=== PATIENT | female | born 1960 | race Caucasian/White ===

== ENCOUNTER 2016-10-26 11:56 | Emergency (ER) | payer BC ==
[2016-10-26] MEDS ORDERED: PROMETHAZINE HCL INJ 25 MG/1 ML VIAL IV ONE (13:03)
[2016-10-26] MEDS ORDERED: OXYCODONE-ACETAMINOPHEN 5-325 MG TABLET PO ONE (13:03)
[2016-10-26] MEDS ORDERED: ONDANSETRON HCL INJ/PF 4 MG/2 ML SDV IV ONE ×2 (13:05→15:39)
[2016-10-26] MEDS ORDERED: MORPHINE SULFATE 10 MG/ML INJ IV ONE ×3 (13:05→17:22)
[2016-10-26 13:45] LABS: APPEARANCE,URINE SLIGHTLY-CLOUDY; BILIRUBIN,URINE NEGATIVE (NEGATIVE); GLUCOSE, URINE NEGATIVE (NEGATIVE); KETONES,URINE NEGATIVE (NEGATIVE); LEUKOCYTE ESTERASE,URINE NEGATIVE (NEGATIVE); NITRITE,URINE NEGATIVE (NEGATIVE); PROTEIN,URINE 30 mg/dL (NEGATIVE); URINE SPECIFIC GRAVITY 1.012; UROBILINOGEN,URINE NEGATIVE mg/dL (<2.0)
--- NOTE | 2016-10-26 13:50 | RADIOLOGY REPORT (SQ) ---
EXAM DESCRIPTION: CT ABD/PELVIS NO ORAL OR IV COMPLETED DATE/TIME: 10/26/2016 1:30 pm REASON FOR STUDY: rlq pain COMPARISON: None. TECHNIQUE: CT scan of the abdomen and pelvis performed without intravenous or oral contrast. Images reviewed with lung, soft tissue, and bone windows. Reconstructed coronal and sagittal MPR images revi ewed. All images stored on PACS. All CT scanners at this facility use dose modulation, iterative reconstruction, and/or weight based d osing when appropriate to reduce radiation dose to as low as reasonably achievable (ALARA). [facility]: Dose Right [facility]: CareDose [facility]: Dose Right [facility]: Teradose 4D [facility]: Smart [employer] RADIATION DOSE: Up-to-date CT equipment and radiation dose reduction techniques were employed. CTDIv ol: 12.5 mGy. DLP: 688 mGy-cm.mGy. LIMITATIONS: None. FINDINGS: LOWER CHEST: Breast implants. Small hiatal hernia. NON-CONTRASTED LIVER, SPLEEN, ADRENALS: Evaluation limited by lack of IV contrast. No identified sign ificant masses. PANCREAS: No masses. No peripancreatic inflammatory changes. GALLBLADDER: Surgically absent. RIGHT KIDNEY AND URETER: No suspicious masses. Assessment limited by lack of IV contrast. No signif icant calcifications. No hydronephrosis or hydroureter. LEFT KIDNEY AND URETER: No suspicious masses. Assessment limited by lack of IV contrast. No signifi cant calcifications. No hydronephrosis or hydroureter. AORTA AND RETROPERITONEUM: No aneurysm. No retroperitoneal masses or adenopathy. BOWEL AND PERITONEAL CAVITY: No obvious masses or inflammatory changes. No free fluid. APPENDIX: Surgically absent. PELVIS, BLADDER, AND ABDOMINAL WALL:Small ventral hernia containing fat. BONES: No significant findings. OTHER: No other significant finding. IMPRESSION: NO ACUTE PROCESS IN THE ABDOMEN OR PELVIS. COMMENT: Quality ID # [id number]: Final reports with documentation of one or more dose reduction techniques (e.g., Automated exposure control, adjustment of the mA and/or kV according to patient size, use of iterative reconstruction technique) TECHNICAL DOCUMENTATION: JOB ID: [id number] [employer]- All Rights Reserved
--- NOTE | 2016-10-26 15:08 | ER Document Report ---
ED General - General Chief Complaint: Flank Pain Stated Complaint: BACK PAIN Time Seen by Provider: 10/26/16 13:02 Mode of Arrival: Ambulatory Information source: Patient Notes: Patient presents with right low back pain for 2 days. She states it does feel similar to a previous kidney stone. It is a sharp pain that radiates around to the right front abdomen. Some nausea and vomiting. No vaginal discharge or bleeding. No dysuria. She has had hematuria. No problems with bowel movements. Nothing makes the pain better or worse. It is moderate and sharp. It has been constant. TRAVEL OUTSIDE OF THE [place] IN LAST 30 DAYS: No - Related Data Allergies/Adverse Reactions: aspirin [Aspirin] Allergy (Verified 10/26/16 12:55) ciprofloxacin [From Cipro] Allergy (Verified 10/26/16 12:55) ciprofloxacin HCl [From Cipro] Allergy (Verified 10/26/16 12:55) ketorolac tromethamine [From Toradol] Allergy (Verified 10/26/16 12:55) NSAIDS (Non-Steroidal Anti-Inflamma [Nsaids] Allergy (Verified 10/26/16 12:55) Quinolones Allergy (Verified 10/26/16 12:55) Past Medical History - General Information source: Patient - Social History Smoking Status: Never Smoker Frequency of alcohol use: Occasional Drug Abuse: None Family History: Reviewed & Not Pertinent - Past Medical History Cardiac Medical History: Reports: Hx Hypercholesterolemia Renal/ Medical History: Denies: Hx Peritoneal Dialysis Psychiatric Medical History: Reports: Hx Anxiety, Hx Depression Past Surgical History: Reports: Hx Appendectomy, Hx Section, Hx Orthopedic Surgery - RIGHT FOOT, Hx Tonsillectomy - Immunizations Hx Diphtheria, Pertussis, Tetanus Vaccination: Yes Review of Systems - Review of Systems Constitutional: denies: Chills, Fever Cardiovascular: denies: Chest pain, Palpitations Respiratory: denies: Cough, Short of breath -: Yes All other systems reviewed and negative Physical Exam - Vital signs Vitals: Temp Pulse Resp BP Pulse Ox 98.1 F 108 H 20 141/95 H 97 10/26/16 12:16 10/26/16 12:16 10/26/16 12:16 10/26/16 12:16 10/26/16 12:16 Interpretation: Hypertensive - General General appearance: Appears well, Alert - HEENT Head: Normocephalic, Atraumatic Eyes: Normal Pupils: PERRL - Respiratory Respiratory status: No respiratory distress Chest status: Nontender Breath sounds: Normal Chest palpation: Normal - Cardiovascular Rhythm: Regular Heart sounds: Normal auscultation Murmur: No - Abdominal Inspection: Normal Distension: No distension Bowel sounds: Normal Tenderness: Nontender Organomegaly: No organomegaly - Back Back: Normal, Nontender - Extremities General upper extremity: Normal inspection, Nontender, Normal color, Normal ROM , Normal temperature General lower extremity: Normal inspection, Nontender, Normal color, Normal ROM , Normal temperature, Normal weight bearing. No: Marv's sign - Neurological Neuro grossly intact: Yes Cognition: Normal Orientation: AAOx4 [place] Coma Scale Eye Opening: Spontaneous [place] Coma Scale Verbal: Oriented [place] Coma Scale Motor: Obeys Commands [place] Coma Scale Total: 15 Speech: Normal Motor strength normal: LUE, RUE, LLE, RLE Sensory: Normal - Psychological Associated symptoms: Normal affect, Normal mood - Skin Skin Temperature: Warm Skin Moisture: Dry Skin Color: Normal Course - Vital Signs Vital signs: Temp Pulse Resp BP Pulse Ox 98.1 F 108 H 20 141/95 H 97 10/26/16 12:16 10/26/16 12:16 10/26/16 12:16 10/26/16 12:16 10/26/16 12:16 - Laboratory Laboratory results interpreted by me: 10/26/16 12:29 Urine Protein 30 H Urine Blood LARGE H - Diagnostic Test Radiology reviewed: Image reviewed, Reports reviewed - no acute path Discharge - Discharge Clinical Impression: UTI (urinary tract infection) Condition: Stable Disposition: HOME, SELF-CARE Instructions: Urinary Tract Infection ([facility]) Additional Instructions: Please follow-up with your primary care provider as soon as possible Prescriptions: Cefdinir 300 mg PO BID #14 capsule Hydrocodone/Acetaminophen [[place] 5-325 mg Tablet] 2 tab PO Q6 PRN #15 tab PRN Reason: Ondansetron [Zofran Odt 4 mg Tablet] 1 - 2 tab PO Q4H PRN #15 tab.rapdis PRN Reason: For Nausea/Vomiting Forms: Elevated Blood Pressure Referrals: AGUEDA ANDERSON MD [ACTIVE STAFF] - Follow up as needed
[2016-10-26] MEDS ORDERED: NORMAL SALINE 1000 ML 1,000 ML IV PRN (15:39)
[2016-10-26] MEDS ORDERED: CEFTRIAXONE 1 GM/D5W RTU 1 GM/50 ML RTUPB IV ONE (15:40)
[2016-10-26 16:43] LABS: ABSOLUTE BASOPHILS # (AUTO) 0.1 10^3/uL (0.0-0.2); ABSOLUTE EOSINOPHILS # (AUTO) 0.1 10^3/uL (0.0-0.6); ABSOLUTE LYMPHOCYTES (AUTO) 1.8 10^3/uL (0.5-4.7); ABSOLUTE MONOCYTES (AUTO) 0.3 10^3/uL (0.1-1.4); ABSOLUTE NEUT (AUTO) 8.4 10^3/uL (1.7-8.2); BASOPHILS % (AUTO) 0.6 % (0-2); EOSINOPHILS % (AUTO) 0.5 % (0-6); HEMATOCRIT 41.3 % (36.0-47.0); HEMOGLOBIN 14.2 g/dL (12.0-15.5); HGB HCT DIFFERENCE 1.3; LYMPHOCYTES % (AUTO) 17.2 % (13-45); MEAN CORPUSCULAR HGB CONC 34.3 g/dL (32.0-36.0); MEAN CORPUSCULAR VOLUME 93 fl (80-97); MONOCYTES % (AUTO) 2.7 % (3-13); RED BLOOD COUNT 4.43 10^6/uL (3.72-5.28); RED CELL DISTRIBUTION WIDTH 13.8 % (11.5-14.0); WHITE BLOOD COUNT 10.7 10^3/uL (4.0-10.5)
[2016-10-26 16:59] LABS: ALANINE AMINOTRANSFERASE 94 U/L (9-52); ALBUMIN 4.2 g/dL (3.5-5.0); ALKALINE PHOSPHATASE 52 U/L (38-126); ANION GAP 11 (5-19); ASPARTATE AMINO TRANSFERASE 33 U/L (14-36); BILIRUBIN,DIRECT 0.3 mg/dL (0.0-0.4); BILIRUBIN,TOTAL 0.5 mg/dL (0.2-1.3); BLOOD UREA NITROGEN 10 mg/dL (7-20); CALCIUM 9.4 mg/dL (8.4-10.2); CARBON DIOXIDE 28 mmol/L (22-30); CHLORIDE 102 mmol/L (98-107); CREATININE RESULT 0.64 mg/dL (0.52-1.25); GLUCOSE 107 mg/dL (75-110); SODIUM 140.5 mmol/L (137-145); TOTAL PROTEIN 6.5 g/dL (6.3-8.2)
[2016-10-26 18:03] VITALS: BP 141/89
== END 2016-10-26 17:55 | disposition home or self-care (01) ==
LOC: ER 11:56
DX: N39.0 Urinary tract infection, site not specified (principal); R31.9 Hematuria, unspecified; R11.2 Nausea with vomiting, unspecified; Z87.442 Personal history of urinary calculi; Z88.6 Allergy status to analgesic agent; Z88.1 Allergy status to other antibiotic agents; Z88.8 Allergy status to other drugs, medicaments and biological substances
CPT/HCPCS: 96376; 99284; 96375; 96365; 36415; 87040; 85025; 80053; 81001; 74176; J2270; J2405; J7030; J0696

== ENCOUNTER 2016-12-24 22:03 | Emergency (ER) | payer BC ==
[2016-12-24 22:45] LABS: APPEARANCE,URINE CLOUDY; BILIRUBIN,URINE NEGATIVE (NEGATIVE); GLUCOSE, URINE NEGATIVE (NEGATIVE); KETONES,URINE NEGATIVE (NEGATIVE); LEUKOCYTE ESTERASE,URINE NEGATIVE (NEGATIVE); NITRITE,URINE NEGATIVE (NEGATIVE); PROTEIN,URINE 30 mg/dL (NEGATIVE); UROBILINOGEN,URINE NEGATIVE mg/dL (<2.0)
[2016-12-24] MEDS ORDERED: NORMAL SALINE 1000 ML 1,000 ML IV ONE (23:18)
[2016-12-24] MEDS ORDERED: MORPHINE SULFATE 10 MG/ML INJ IV ONE (23:18)
[2016-12-24] MEDS ORDERED: ONDANSETRON HCL INJ/PF 4 MG/2 ML SDV IV ONE (23:18)
[2016-12-24 23:20] LABS: ABSOLUTE BASOPHILS # (AUTO) 0.1 10^3/uL (0.0-0.2); ABSOLUTE EOSINOPHILS # (AUTO) 0.2 10^3/uL (0.0-0.6); ABSOLUTE MONOCYTES (AUTO) 0.4 10^3/uL (0.1-1.4); ABSOLUTE NEUT (AUTO) 6.5 10^3/uL (1.7-8.2); EOSINOPHILS % (AUTO) 1.5 % (0-6); HEMATOCRIT 42.1 % (36.0-47.0); HEMOGLOBIN 14.6 g/dL (12.0-15.5); HGB HCT DIFFERENCE 1.7; LYMPHOCYTES % (AUTO) 29.7 % (13-45); MEAN CORPUSCULAR HEMOGLOBIN 31.2 pg (27.0-33.4); MEAN CORPUSCULAR HGB CONC 34.6 g/dL (32.0-36.0); MEAN CORPUSCULAR VOLUME 90 fl (80-97); MONOCYTES % (AUTO) 3.9 % (3-13); RED BLOOD COUNT 4.67 10^6/uL (3.72-5.28); RED CELL DISTRIBUTION WIDTH 14.6 % (11.5-14.0); SEGMENTED NEUTROPHILS % (AUTO) 63.9 % (42-78); WHITE BLOOD COUNT 10.1 10^3/uL (4.0-10.5)
[2016-12-24 23:35] LABS: ALANINE AMINOTRANSFERASE 36 U/L (9-52); ALBUMIN 4.2 g/dL (3.5-5.0); ALKALINE PHOSPHATASE 63 U/L (38-126); ANION GAP 11 (5-19); ASPARTATE AMINO TRANSFERASE 18 U/L (14-36); BILIRUBIN,DIRECT 0.4 mg/dL (0.0-0.4); BILIRUBIN,TOTAL 0.5 mg/dL (0.2-1.3); BLOOD UREA NITROGEN 11 mg/dL (7-20); CALCIUM 9.6 mg/dL (8.4-10.2); CARBON DIOXIDE 24 mmol/L (22-30); CHLORIDE 106 mmol/L (98-107); CREATININE RESULT 0.73 mg/dL (0.52-1.25); GLUCOSE 110 mg/dL (75-110); LIPASE 24.3 U/L (23-300); POTASSIUM 4.4 mmol/L (3.6-5.0); SODIUM 140.8 mmol/L (137-145); TOTAL PROTEIN 6.7 g/dL (6.3-8.2)
--- NOTE | 2016-12-25 00:16 | RADIOLOGY REPORT (SQ) ---
EXAM DESCRIPTION: CT LTD RENAL STONE PROTOCOL ON COMPLETED DATE/TIME: 12/25/2016 12:00 am REASON FOR STUDY: right flank pain COMPARISON: None. TECHNIQUE: CT scan of the abdomen and pelvis performed without intravenous or oral contrast. Images reviewed with lung, soft tissue, and bone windows. Reconstructed coronal and sagittal MPR images revi ewed. All images stored on PACS. All CT scanners at this facility use dose modulation, iterative reconstruction, and/or weight based d osing when appropriate to reduce radiation dose to as low as reasonably achievable (ALARA). [facility]: Dose Right [facility]: CareDose [facility]: Dose Right [facility]: Teradose 4D [facility]: Smart [employer] RADIATION DOSE: Up-to-date CT equipment and radiation dose reduction techniques were employed. CTDIv ol: 14.5 mGy. DLP: 739 mGy-cm.mGy. LIMITATIONS: None. FINDINGS: LOWER CHEST: No significant findings. No nodules or infiltrates. Mammary prostheses. NON-CONTRASTED LIVER, SPLEEN, ADRENALS: Evaluation limited by lack of IV contrast. No identified sign ificant masses. PANCREAS: No masses. No peripancreatic inflammatory changes. GALLBLADDER: Surgically absent. RIGHT KIDNEY AND URETER: No suspicious masses. Assessment limited by lack of IV contrast. No signif icant calcifications. No hydronephrosis or hydroureter. Likely small parapelvic cyst or extrarenal pelvis. LEFT KIDNEY AND URETER: No suspicious masses. Assessment limited by lack of IV contrast. No signifi cant calcifications. No hydronephrosis or hydroureter. AORTA AND RETROPERITONEUM: No aneurysm. No retroperitoneal masses or adenopathy. Atherosclerosis. BOWEL AND PERITONEAL CAVITY: No obvious masses or inflammatory changes. No free fluid. APPENDIX: Surgically absent. PELVIS, BLADDER, AND ABDOMINAL WALL:No abnormal masses. No free fluid. Bladder normal. BONES: No significant findings. OTHER: No other significant finding. IMPRESSION: No acute findings. COMMENT: Quality ID # [id number]: Final reports with documentation of one or more dose reduction techniques (e.g., Automated exposure control, adjustment of the mA and/or kV according to patient size, use of iterative reconstruction technique) TECHNICAL DOCUMENTATION: JOB ID: [id number]- All Rights Reserved
--- NOTE | 2016-12-25 01:11 | ER Document Report ---
ED General - General Chief Complaint: Flank Pain Stated Complaint: RIGHT FLANK PAIN Time Seen by Provider: 12/24/16 23:07 Notes: Patient is a 56-year-old female presents with complaint of pain in her right flank. She says she has a history of kidney stones says this feels similar. She has had some vomiting. No fevers. She says she has possible previous kidney stones in her past. She has never needed a stent. She has noticed some blood in her urine. She denies any diarrhea. No other complaints at this time. TRAVEL OUTSIDE OF THE [place] IN LAST 30 DAYS: No - Related Data Allergies/Adverse Reactions: aspirin [Aspirin] Allergy (Verified 12/24/16 22:16) ciprofloxacin [From Cipro] Allergy (Verified 12/24/16 22:16) ciprofloxacin HCl [From Cipro] Allergy (Verified 12/24/16 22:16) ketorolac tromethamine [From Toradol] Allergy (Verified 12/24/16 22:16) NSAIDS (Non-Steroidal Anti-Inflamma [Nsaids] Allergy (Verified 12/24/16 22:16) Quinolones Allergy (Verified 12/24/16 22:16) Past Medical History - Social History Smoking Status: Never Smoker Frequency of alcohol use: None Drug Abuse: None Family History: Reviewed & Not Pertinent Patient has suicidal ideation: No Patient has homicidal ideation: No - Past Medical History Cardiac Medical History: Reports: Hx Hypercholesterolemia Renal/ Medical History: Denies: Hx Peritoneal Dialysis Psychiatric Medical History: Reports: Hx Anxiety, Hx Depression Past Surgical History: Reports: Hx Appendectomy, Hx Section, Hx Orthopedic Surgery - RIGHT FOOT, Hx Tonsillectomy - Immunizations Hx Diphtheria, Pertussis, Tetanus Vaccination: Yes Review of Systems - Review of Systems Notes: My Normal Review Basic REVIEW OF SYSTEMS: CONSTITUTIONAL : Denies fever, chills, or sweats. Denies recent illness. Vascular: No chest pain. RESPIRATORY: Denies cough, cold, or chest congestion. Denies shortness of breath, difficulty breathing, or wheezing. GASTROINTESTINAL: Denies abdominal pain. Denies nausea, vomiting, or diarrhea. GENITOURINARY: Hematuria. Some pain with urination. MUSCULOSKELETAL: Denies neck or back pain or joint pain or swelling. SKIN: Denies rash or skin lesions. NEUROLOGICAL: Denies altered mental status or loss of consciousness. Denies headache. Denies weakness or paralysis or loss of use of either side. Denies problems with gait or speech. Denies sensory or motor loss. ALL OTHER SYSTEMS REVIEWED AND NEGATIVE. Physical Exam - Vital signs Vitals: Temp Pulse Resp BP Pulse Ox 98.5 F 126 H 16 185/79 H 98 12/24/16 22:13 12/24/16 22:13 12/24/16 22:13 12/24/16 22:13 12/24/16 22:13 - Notes Notes: General Appearance: Well nourished, alert, cooperative, no acute distress, moderate obvious discomfort. Vitals: reviewed, See vital signs table. Head: no swelling or tenderness to the head Eyes: PERRL, EOMI, Conjuctiva clear Mouth: No decreasd moisture Lungs: No wheezing, No rales, No rhonci, No accessory muscle use, good air exchange bilaterally. Heart: Normal rate, Regular rythm, No murmur, no rub Abdomen: Normal BS, soft, No rigidity, No reproducible abdominal or flank tenderness to palpation, No guarding, no rebound, no abdominal masses, no organomegaly Extremities: strength 5/5 in all extremities, good pulses in all extremities, no swelling or tenderness in the extremities, no edema. Skin: warm, dry, appropriate color, no rash Neuro: speech clear, oriented x 3, normal affect, responds appropriately to questions. Course - Re-evaluation Re-evalutation: 12/25/16 06:11 Initial evaluation patient's exam and history are consistent with that of a kidney stone. Urinalysis showed blood but no signs of infection. Her blood work is non-concerning. I did obtain a CT scan which shows no evidence of kidney stone and no hydronephrosis. Patient first arrived she is tachycardic. Her pain and tachycardia did improve after she received IV pain medication. She then was requesting more of the pain medicine. I did look her up on the prescription database and saw that the patient has received different narcotic prescriptions from 5 different prescribers in the last 4 and a half months. I informed her that based on the fact that she has no stone on scan and the concerning prescription history I do not feel comfortable giving her any further opiate medications. She also has an allergy to all NSAID medications which she says is for anaphylaxis. I informed her that she could take Tylenol. Patient says that she thinks the reason why stone is not showing up is because she thinks she just passed it when she used the bathroom just prior to becoming to the room; ever, she says that she still needs more pain medication. Informed her again that would not be given appropriate pain medication. I informed her that I feel comfortable treating her Tylenol at this point. Encouraged her follow-up closely with a primary care doctor. Encouraged her return to ER if she has any fevers, vomiting is intractable, or she feels unwell. I suspect that it is unlikely that she did pass a stone pass based on the fact that there is no residual hydronephrosis on her CT scan. She did pass a stone it was very small as a stone of moderate-sized should have at least caused some hydronephrosis. Dictation of this chart was performed using voice recognition software; therefore, there may be some unintended grammatical errors. - Vital Signs Vital signs: Temp Pulse Resp BP Pulse Ox 98.9 F 100 16 149/91 H 98 12/25/16 01:46 12/25/16 01:46 12/25/16 01:46 12/25/16 01:46 12/25/16 01:46 - Laboratory Result Diagrams: 12/24/16 23:10 12/24/16 23:10 Laboratory results interpreted by me: 12/24/16 12/24/16 22:17 23:10 RDW 14.6 H Urine Protein 30 H Urine Blood LARGE H Discharge - Discharge Clinical Impression: Flank pain, acute Hematuria Qualifiers: Hematuria type: unspecified type Qualified Code(s): R31.9 - Hematuria, unspecified Condition: Good Disposition: HOME, SELF-CARE Additional Instructions: Your CT scan today shows no evidence of a kidney stone. Please follow up with your doctor on Tuesday to have them recheck your urine to make sure the blood is clearing and that there is no signs of a developing infection that was not seen on todays urinalysis. I will send your urine for culture to see if it grows out any bacteria. If your urine culture is positive we will call you. Please return to the ER if you have fevers, change in location of your pain, intractable vomiting, or feel unwell. Prescriptions: Ondansetron [Zofran Odt 4 mg Tablet] 1 tab PO Q4H PRN #15 tab.rapdis PRN Reason: For Nausea/Vomiting Referrals: LINDSEY TATUM, [employer] [Primary Care Provider] - 12/27/16
[2016-12-25] MEDS ORDERED: ACETAMINOPHEN 325 MG TABLET PO ONE (01:12)
[2016-12-25 01:47] VITALS: BP 149/91
== END 2016-12-25 01:46 | disposition home or self-care (01) ==
LOC: ER 22:03
DX: R31.9 Hematuria, unspecified (principal); R10.9 Unspecified abdominal pain; R11.10 Vomiting, unspecified
CPT/HCPCS: 99284; 96361; 96374; 96375; 36415; 87086; 83690; 85025; 80053; 81001; 76380; J2270; J2405; J7030

== ENCOUNTER 2017-01-22 15:42 | Emergency (ER) | payer BC ==
[2017-01-22] MEDS ORDERED: HYDROCODONE/ACETAMINOPHEN 5-325 MG TABLET PO ONE ×2 (16:21→19:30)
[2017-01-22] MEDS ORDERED: NORMAL SALINE 1000 ML 1,000 ML IV ONE (16:21)
[2017-01-22] MEDS ORDERED: ONDANSETRON HCL INJ/PF 4 MG/2 ML SDV IV ONE (16:21)
--- NOTE | 2017-01-22 16:24 | ER Document Report ---
ED Medical Screen (RME) - General Chief Complaint: Abdominal Pain Stated Complaint: LOWER ABDOMINAL PAIN, RIGHT WRIST AND KNEE PAIN Time Seen by Provider: 01/22/17 16:20 Mode of Arrival: Ambulatory Information source: Patient TRAVEL OUTSIDE OF THE [place] IN LAST 30 DAYS: No - HPI Patient complains to provider of: abd pain; wrist and knee pain from cat bites Onset: This morning - pt woke up from sleep earlier this am with lower abdominal pain. Also c/o R knee and wrist pain following multiple cat bites 1 week ago - Related Data Allergies/Adverse Reactions: aspirin [Aspirin] Allergy (Verified 12/24/16 22:16) ciprofloxacin [From Cipro] Allergy (Verified 12/24/16 22:16) ciprofloxacin HCl [From Cipro] Allergy (Verified 12/24/16 22:16) ketorolac tromethamine [From Toradol] Allergy (Verified 12/24/16 22:16) NSAIDS (Non-Steroidal Anti-Inflamma [Nsaids] Allergy (Verified 12/24/16 22:16) Quinolones Allergy (Verified 12/24/16 22:16) Home Medications: Current Home Medications Clonidine HCl 1 tab PO BID 01/22/17 [History] Duloxetine HCl [Cymbalta] 1 cap PO DAILY 01/22/17 [History] Lorazepam [Ativan 1 mg Tablet] 1 tab PO BID PRN 01/22/17 [History] Propranolol HCl [Inderal Xl] 1 cap PO DAILY 01/22/17 [History] Quetiapine Fumarate [Seroquel] 1 tab PO QHS 01/22/17 [History] Past Medical History - Social History Chew tobacco use (# tins/day): No Frequency of alcohol use: None Drug Abuse: Bath salts - Past Medical History Cardiac Medical History: Reports: Hx Hypercholesterolemia Renal/ Medical History: Denies: Hx Peritoneal Dialysis Psychiatric Medical History: Reports: Hx Anxiety, Hx Depression Past Surgical History: Reports: Hx Appendectomy, Hx Section, Hx Orthopedic Surgery - RIGHT FOOT, Hx Tonsillectomy - Immunizations Hx Diphtheria, Pertussis, Tetanus Vaccination: Yes
[2017-01-22] MEDS ORDERED: MORPHINE SULFATE 10 MG/ML INJ IV ONE (16:45)
[2017-01-22 16:57] LABS: ABSOLUTE BASOPHILS # (AUTO) 0.1 10^3/uL (0.0-0.2); ABSOLUTE EOSINOPHILS # (AUTO) 0.1 10^3/uL (0.0-0.6); ABSOLUTE LYMPHOCYTES (AUTO) 2.7 10^3/uL (0.5-4.7); ABSOLUTE MONOCYTES (AUTO) 0.3 10^3/uL (0.1-1.4); BASOPHILS % (AUTO) 1.1 % (0-2); EOSINOPHILS % (AUTO) 0.8 % (0-6); HEMATOCRIT 48.2 % (36.0-47.0); HEMOGLOBIN 16.4 g/dL (12.0-15.5); LYMPHOCYTES % (AUTO) 29.8 % (13-45); MEAN CORPUSCULAR HEMOGLOBIN 30.9 pg (27.0-33.4); MEAN CORPUSCULAR HGB CONC 34.1 g/dL (32.0-36.0); MEAN CORPUSCULAR VOLUME 91 fl (80-97); MONOCYTES % (AUTO) 3.1 % (3-13); RED BLOOD COUNT 5.32 10^6/uL (3.72-5.28); RED CELL DISTRIBUTION WIDTH 14.2 % (11.5-14.0); SEGMENTED NEUTROPHILS % (AUTO) 65.2 % (42-78); WHITE BLOOD COUNT 9.2 10^3/uL (4.0-10.5)
[2017-01-22 17:02] LABS: APPEARANCE,URINE CLEAR; BILIRUBIN,URINE NEGATIVE (NEGATIVE); GLUCOSE, URINE NEGATIVE (NEGATIVE); KETONES,URINE NEGATIVE (NEGATIVE); LEUKOCYTE ESTERASE,URINE NEGATIVE (NEGATIVE); NITRITE,URINE NEGATIVE (NEGATIVE); PROTEIN,URINE NEGATIVE (NEGATIVE); URINE SPECIFIC GRAVITY 1.014; UROBILINOGEN,URINE NEGATIVE mg/dL (<2.0)
[2017-01-22 17:14] LABS: ALANINE AMINOTRANSFERASE 37 U/L (9-52); ALBUMIN 4.7 g/dL (3.5-5.0); ALKALINE PHOSPHATASE 52 U/L (38-126); ANION GAP 16 (5-19); ASPARTATE AMINO TRANSFERASE 23 U/L (14-36); BILIRUBIN,DIRECT 0.5 mg/dL (0.0-0.4); BILIRUBIN,TOTAL 0.6 mg/dL (0.2-1.3); BLOOD UREA NITROGEN 12 mg/dL (7-20); CALCIUM 10.3 mg/dL (8.4-10.2); CARBON DIOXIDE 28 mmol/L (22-30); CHLORIDE 98 mmol/L (98-107); CREATININE RESULT 0.84 mg/dL (0.52-1.25); GLUCOSE 145 mg/dL (75-110); LIPASE 18.2 U/L (23-300); POTASSIUM 4.4 mmol/L (3.6-5.0); TOTAL PROTEIN 7.7 g/dL (6.3-8.2)
--- NOTE | 2017-01-22 17:14 | RADIOLOGY REPORT (SQ) ---
EXAM DESCRIPTION: ACUTE ABDOMEN SERIES COMPLETED DATE/TIME: 01/22/2017 5:06 pm REASON FOR STUDY: abd pain COMPARISON: None. NUMBER OF VIEWS: Three views. TECHNIQUE: Frontal chest, supine abdomen and upright/decubitus abdomen radiographic images acquired. LIMITATIONS: None. FINDINGS: CHEST: Lungs clear of infiltrates. FREE AIR: None. No abnormal gas collections. BOWEL GAS PATTERN: Nonobstructive pattern. No dilated loops or air fluid levels. CALCIFICATIONS: No suspicious calcifications. HARDWARE: Cholecystectomy clips. SOFT TISSUES: No gross mass or suggestion of organomegaly. BONES: No acute fracture. No worrisome bone lesions. OTHER: No other significant finding. IMPRESSION: NO RADIOGRAPHIC EVIDENCE FOR ACUTE ABDOMINAL DISEASE. TECHNICAL DOCUMENTATION: JOB ID: [id number] [employer]- All Rights Reserved
[2017-01-22] MEDS ORDERED: BACITRACIN ZINC OINTMENT 15 GM TP ONE (18:22)
[2017-01-22] MEDS ORDERED: DIPHENHYDRAMINE HCL 50 MG/ML VIAL IV ONE (18:22)
[2017-01-22] MEDS ORDERED: CEFTRIAXONE INJ 1000 MG VIAL IV ONE (18:23)
[2017-01-22] MEDS ORDERED: LORAZEPAM INJ 2 MG/1 ML VIAL IV ONE (18:23)
[2017-01-22] MEDS ORDERED: DICYCLOMINE HCL 10 MG CAPSULE PO ONE (18:24)
--- NOTE | 2017-01-22 18:30 | ER Document Report ---
ED General - General Chief Complaint: Abdominal Pain Stated Complaint: LOWER ABDOMINAL PAIN, RIGHT WRIST AND KNEE PAIN Time Seen by Provider: 01/22/17 16:20 Mode of Arrival: Ambulatory Information source: Patient TRAVEL OUTSIDE OF THE [place] IN LAST 30 DAYS: No - HPI Notes: Patient is a 56-year-old female presents emergency department with report that she was bitten by her cat and scratched multiple times on the right arm and the right leg and she has some localized erythema and a mild itching there. The patient reports no fever or chills. She does report some mild pain with movement of the area as it stretches the skin. Patient also reports abdominal pain came on mild yesterday has been crampy and intermittent since that time. The patient reports pain is worse left lower quadrant and she had one loose bowel movement today. She reports previous nausea vomiting, but denies any hematemesis of bright red blood per rectum or recent antibiotics. She is unaware of any specific exposures to anyone is been sick. She denies any chest pain or difficulty breathing. Review of old records shows that the patient had similar left lower quadrant abdominal pain and had a negative CT scan of the abdomen on 12/25/16. Patient has previous history of cholecystectomy, appendectomy, , hypertension, anxiety and depression. She has no history of irritable bowel syndrome. Patient reports last colonoscopy was 2012. Family history father had colon cancer in his 60s, early 70s. Note that the patient is already on Prilosec and Carafate. - Related Data Allergies/Adverse Reactions: aspirin [Aspirin] Allergy (Verified 12/24/16 22:16) ciprofloxacin [From Cipro] Allergy (Verified 12/24/16 22:16) ciprofloxacin HCl [From Cipro] Allergy (Verified 12/24/16 22:16) ketorolac tromethamine [From Toradol] Allergy (Verified 12/24/16 22:16) NSAIDS (Non-Steroidal Anti-Inflamma [Nsaids] Allergy (Verified 12/24/16 22:16) Quinolones Allergy (Verified 12/24/16 22:16) Home Medications: Current Home Medications Clonidine HCl 1 tab PO BID 01/22/17 [History] Duloxetine HCl [Cymbalta] 1 cap PO DAILY 01/22/17 [History] Lorazepam [Ativan 1 mg Tablet] 1 tab PO BID PRN 01/22/17 [History] Propranolol HCl [Inderal Xl] 1 cap PO DAILY 01/22/17 [History] Quetiapine Fumarate [Seroquel] 1 tab PO QHS 01/22/17 [History] Past Medical History - General Information source: Patient - Social History Smoking Status: Current Every Day Smoker Chew tobacco use (# tins/day): No Frequency of alcohol use: None Drug Abuse: [place] Family History: Reviewed & Not Pertinent Patient has suicidal ideation: No Patient has homicidal ideation: No - Past Medical History Cardiac Medical History: Reports: Hx Hypercholesterolemia Renal/ Medical History: Denies: Hx Peritoneal Dialysis Psychiatric Medical History: Reports: Hx Anxiety, Hx Depression Past Surgical History: Reports: Hx Appendectomy, Hx Section, Hx Orthopedic Surgery - RIGHT FOOT, Hx Tonsillectomy - Immunizations Hx Diphtheria, Pertussis, Tetanus Vaccination: Yes Review of Systems - Review of Systems Notes: REVIEW OF SYSTEMS: CONSTITUTIONAL : Denies fever, chills, or sweats. EENT: Denies eye, ear, throat, or mouth pain or symptoms. Denies throat, tongue, or mouth swelling or difficulty swallowing. cough. Patient also reports some recent congestion and cough min productive. CARDIOVASCULAR: Denies chest pain. Denies palpitations or racing or irregular heart beat. Denies ankle edema. RESPIRATORY: Denies shortness of breath, difficulty breathing, or wheezing. GASTROINTESTINAL: Denies abdominal distention. Denies blood in vomitus, stools, or per rectum. Denies black, tarry stools. Denies constipation. GENITOURINARY: Denies difficulty urinating, painful urination, burning, frequency, blood in urine, or discharge. FEMALE GENITOURINARY: Denies vaginal bleeding, heavy or abnormal periods, irregular periods. Denies vaginal discharge or odor. MUSCULOSKELETAL: Denies back or neck pain or stiffness. Denies joint pain or swelling. SKIN: Denies rash, lesions or sores. HEMATOLOGIC : Denies easy bruising or bleeding. LYMPHATIC: Denies swollen, enlarged glands. NEUROLOGICAL: Denies confusion or altered mental status. Denies passing out or loss of consciousness. Denies dizziness or lightheadedness. Denies headache. Denies weakness or paralysis or loss of use of either side. Denies problems with gait or speech. Denies sensory loss, numbness, or tingling. Denies seizures. PSYCHIATRIC: Denies anxiety or stress. Denies depression, suicidal ideation, or homicidal ideation. ALL OTHER SYSTEMS REVIEWED AND NEGATIVE. Dictation was performed using [employer] voice recognition software Physical Exam - Notes Notes: PHYSICAL EXAMINATION: GENERAL: Well-appearing, well-nourished and in no acute distress. HEAD: Atraumatic, normocephalic. EYES: Pupils equal round and reactive to light, extraocular movements intact, conjunctiva are normal. ENT: Nares patent, oropharynx clear without exudates. Moist mucous membranes. NECK: Normal range of motion, supple without lymphadenopathy LUNGS: Breath sounds clear to auscultation bilaterally and equal. No wheezes rales or rhonchi. HEART: Regular rate and rhythm without murmurs ABDOMEN: Soft, nondistended abdomen. No guarding, no rebound. No masses appreciated. Obese. Mild tenderness left lower quadrant and left mid quadrant region, but the patient can be distracted away from this. No pulsatile mass. Female : deferred Musculoskeletal: Normal range of motion, no pitting or edema. No cyanosis. NEUROLOGICAL: Cranial nerves grossly intact. Normal speech, normal gait. Normal sensory, motor exams PSYCH: Normal mood, normal affect. SKIN: Warm, Dry, normal turgor. Excoriations on the right arm and right leg with minimal erythema no obvious cellulitis or abscess and no evidence for septic arthritis. These of the locations of the patient's previous cat scratches. Course - Re-evaluation Re-evalutation: 01/22/17 18:32 Old records were reviewed. The patient was given [place], morphine with some improvement. The patient was given antibiotic ointment to the skin wounds, and was given Benadryl for itching, bentyl for colon spasms, Ativan and Rocephin. Patient had some improvement in symptoms. Patient reported that the cat's immunizations and rabies vaccination are up-to- date. Given the recent negative CT scan for similar symptoms, there is no evidence for diverticulitis or aneurysm, and given the normal blood work and normalization of the patient's pulse down to 82 after normal saline bolus. There appears to be no obvious evidence for significant colitis, and question a viral etiology given the associated symptoms versus irritable bowel. No evidence for kidney stone or urinary tract infection. 01/22/17 18:34 - Laboratory Result Diagrams: 01/22/17 16:38 01/22/17 16:38 Laboratory results interpreted by me: 01/22/17 01/22/17 16:38 16:38 RBC 5.32 H Hgb 16.4 H Hct 48.2 H RDW 14.2 H Glucose 145 H Calcium 10.3 H Direct Bilirubin 0.5 H Lipase 18.2 L Discharge - Discharge Clinical Impression: Cat bite involving extremity Abdominal pain Qualifiers: Abdominal location: left lower quadrant Qualified Code(s): R10.32 - Left lower quadrant pain Diarrhea Qualifiers: Diarrhea type: unspecified type Qualified Code(s): R19.7 - Diarrhea, unspecified Condition: Stable Disposition: HOME, SELF-CARE Instructions: Abdominal Pain ([facility]), Antispasmodics ([facility]), Pain Medication Injection ([facility]), Antinausea Medication ([facility]), Animal Bites ([facility]) Additional Instructions: you may need a colonoscopy if pain and diarrhea continue. [place] diet. Return to the emergency department case of fever, severe swelling or pain. Take benadryl for itching and trim your fingernails closely. Prescriptions: Ondansetron [Zofran Odt 4 mg Tablet] 1 tab PO Q8HP PRN #10 tab.rapdis PRN Reason: For Nausea/Vomiting Amox Tr/Potassium Clavulanate [Augmentin 875-125 Tablet] 1 tab PO BID 8 Days tablet Dicyclomine HCl [Bentyl 10 mg Capsule] 10 mg PO RTQIDP PRN #20 capsule PRN Reason: Referrals: GEETA OBRIEN MD [Primary Care Provider] - Follow up in 3-5 days
[2017-01-22] MEDS ORDERED: TRAMADOL HCL 50 MG TABLET PO ONE (19:21)
[2017-01-22 20:33] VITALS: BP 140/75
== END 2017-01-22 19:47 | disposition home or self-care (01) ==
LOC: ER 15:42
DX: S40.811A Abrasion of right upper arm, initial encounter (principal); S80.811A Abrasion, right lower leg, initial encounter; W55.03XA Scratched by cat, initial encounter; R10.32 Left lower quadrant pain; R19.7 Diarrhea, unspecified; R11.2 Nausea with vomiting, unspecified; F17.200 Nicotine dependence, unspecified, uncomplicated; I10 Essential (primary) hypertension; Z90.49 Acquired absence of other specified parts of digestive tract; Z80.0 Family history of malignant neoplasm of digestive organs; Z79.899 Other long term (current) drug therapy; Z88.6 Allergy status to analgesic agent; Z88.1 Allergy status to other antibiotic agents; Z88.8 Allergy status to other drugs, medicaments and biological substances
CPT/HCPCS: 99284; 96361; 96375; 96365; 36415; 83690; 85025; 80053; 81001; 74022; J3490; J1200; J2270; J2060; J0696; J2405; J7030

== ENCOUNTER 2017-03-10 23:38 | Emergency (ER) | payer BC ==
--- NOTE | 2017-03-11 02:47 | ER Document Report ---
ED General - General Chief Complaint: Shoulder Pain Stated Complaint: PAIN BETWEEN SHOULDER BLADES AND RIGHT LEG Time Seen by Provider: 03/11/17 02:46 Notes: Patient is a 56-year-old female who comes emergency department for chief complaint of discomfort in her mid upper abdomen that seems to go to her back intermittently with nausea. Symptoms started about 30 minutes after eating dinner. She has had a cholecystectomy. She states she has not vomited but she still feels nauseated. She denies fever or chills. She denies chest pain, shortness of breath. She had an unremarkable bowel movement this morning. She has had an appendectomy, only other reported medical history is anxiety/ depression and hyperlipidemia. Patient secondarily notes that a couple of days ago she was scratched and bitten all over her right lower extremity by her kitten and now the area has started to become tender and there is mild scattered redness. She denies fever or chills. She does not have diabetes. Tetanus is UTD. TRAVEL OUTSIDE OF THE [place] IN LAST 30 DAYS: No - Related Data Allergies/Adverse Reactions: aspirin [Aspirin] Allergy (Verified 03/10/17 23:40) ciprofloxacin [From Cipro] Allergy (Verified 03/10/17 23:40) ciprofloxacin HCl [From Cipro] Allergy (Verified 03/10/17 23:40) ketorolac tromethamine [From Toradol] Allergy (Verified 03/10/17 23:40) NSAIDS (Non-Steroidal Anti-Inflamma [Nsaids] Allergy (Verified 03/10/17 23:40) Quinolones Allergy (Verified 03/10/17 23:40) Past Medical History - General Information source: Patient - Social History Smoking Status: Never Smoker Chew tobacco use (# tins/day): No Frequency of alcohol use: None Drug Abuse: None Lives with: Family Family History: Reviewed & Not Pertinent Patient has suicidal ideation: No Patient has homicidal ideation: No - Past Medical History Cardiac Medical History: Reports: Hx Hypercholesterolemia Renal/ Medical History: Denies: Hx Peritoneal Dialysis Psychiatric Medical History: Reports: Hx Anxiety, Hx Depression Past Surgical History: Reports: Hx Appendectomy, Hx Section, Hx Orthopedic Surgery - RIGHT FOOT, Hx Tonsillectomy - Immunizations Hx Diphtheria, Pertussis, Tetanus Vaccination: Yes Review of Systems - Review of Systems Constitutional: No symptoms reported EENT: No symptoms reported Cardiovascular: No symptoms reported Respiratory: No symptoms reported Gastrointestinal: See HPI Genitourinary: No symptoms reported Female Genitourinary: No symptoms reported Musculoskeletal: See HPI Skin: See HPI Hematologic/Lymphatic: No symptoms reported Neurological/Psychological: No symptoms reported Physical Exam - Vital signs Vitals: Temp Pulse Resp BP Pulse Ox 97.8 F 79 16 137/78 H 100 03/10/17 23:57 03/10/17 23:57 03/10/17 23:57 03/10/17 23:57 03/10/17 23:57 Interpretation: Normal - General General appearance: Alert In distress: None - HEENT Head: Normocephalic, Atraumatic Eyes: Normal Pupils: PERRL - Respiratory Respiratory status: No respiratory distress Chest status: Nontender Breath sounds: Normal Chest palpation: Normal - Cardiovascular Rhythm: Regular. No: Tachycardia Heart sounds: Normal auscultation, S1 appreciated, S2 appreciated Murmur: No - Abdominal Inspection: Normal Distension: No distension Bowel sounds: Normal Tenderness: Tender - There is mild tenderness in the upper abdomen, also in the left upper abdomen, no guarding, no rigidity, abdomen soft and nontender otherwise. No: McBurney's point, Hill's sign, Guarding Organomegaly: No organomegaly - Back Back: Normal, Nontender. No: Tender, CVA tenderness - Extremities General upper extremity: Normal inspection, Nontender, Normal ROM, Normal strength General lower extremity: Other - Widespread scratches and small bites over the right lower extremity over the proximal and distal tibia, healed wounds, there is mild erythema in between multiple areas, no overt cellulitis, no induration or fluctuance, no open wounds. No lymphangitis. No swelling of the soft tissue. Normal distal pulses and sensation, normal range of motion at the knee , ankle. - Neurological Neuro grossly intact: Yes Cognition: Normal Orientation: AAOx4 G[place] Coma Scale Eye Opening: Spontaneous [place] Coma Scale Verbal: Oriented [place] Coma Scale Motor: Obeys Commands [place] Coma Scale Total: 15 Speech: Normal Motor strength normal: LUE, RUE, LLE, RLE Sensory: Normal - Psychological Associated symptoms: Normal affect, Normal mood - Skin Skin Temperature: Warm Skin Moisture: Dry Skin Color: Normal Course - Re-evaluation Re-evalutation: CBC, chemistry, lipase unremarkable. Urine showing some bacteria but no other infection evidence otherwise, no lower abdominal pain or flank pain. Patient asymptomatic after medications. No gallbladder. Very low suspicion of acute abdomen, cardiac source. Questionable early cellulitis secondary to cat scratches and bites. Putting on Augmentin. Provided with nausea medication, she is already on Carafate and omeprazole, she already has a endoscopy scheduled , she states that she wants to call a local health systems analyst to have it sooner than later. She states she is ready to leave. Discussed return precautions in detail, follow-up, patient states satisfaction and agreement. - Vital Signs Vital signs: Temp Pulse Resp BP Pulse Ox 97.8 F 72 20 149/86 H 96 03/11/17 05:25 03/11/17 05:25 03/11/17 05:25 03/11/17 05:25 03/11/17 05:25 - Laboratory Result Diagrams: 03/11/17 03:20 03/11/17 03:20 Laboratory results interpreted by me: 03/11/17 03/11/17 03:20 03:20 RDW 14.8 H Lipase 18.9 L Discharge - Discharge Clinical Impression: Animal bite, Upper abdominal pain, Nausea Condition: Stable Disposition: HOME, SELF-CARE Additional Instructions: Your workup and symptoms are most consistent with inflammation of the upper gastrointestinal tract. Continue your omeprazole and Carafate at home. Take the Zofran if needed for nausea. Avoid smoking, alcohol, caffeine, NSAIDs, spicy food. Follow-up with the gastroenterology referral (call the number listed for the appointment). Take the Augmentin as prescribed for animal bites/scratches. I recommend probiotic supplement to avoid diarrhea. Return if you worsen including developing or spreading redness on your leg, fever, vomiting, black stools, severe pain, or any other concerning symptoms. Prescriptions: Amox Tr/Potassium Clavulanate [Augmentin 875-125 Tablet] 1 tab PO BID 7 Days tablet Ondansetron [Zofran Odt 4 mg Tablet] 1 - 2 tab PO Q4H PRN #15 tab.rapdis PRN Reason: For Nausea/Vomiting Referrals: PIYUSH VELASQUEZ MD [ACTIVE STAFF] - Follow up as needed MARIJA KLEIN MD [ACTIVE STAFF] - Follow up as needed
[2017-03-11] MEDS ORDERED: ONDANSETRON 4 MG TAB.RAPDIS PO ONE (02:55)
[2017-03-11] MEDS ORDERED: SUCRALFATE 1 GM TABLET PO ONE (02:55)
[2017-03-11] MEDS ORDERED: FAMOTIDINE 20 MG TABLET PO ONE (02:55)
[2017-03-11] MEDS ORDERED: OXYCODONE-ACETAMINOPHEN 5-325 MG TABLET PO ONE (03:32)
[2017-03-11] MEDS ORDERED: MORPHINE SULFATE 10 MG/ML INJ IV ONE (03:47)
[2017-03-11 03:50] LABS: ABSOLUTE EOSINOPHILS # (AUTO) 0.1 10^3/uL (0.0-0.6); ABSOLUTE LYMPHOCYTES (AUTO) 2.6 10^3/uL (0.5-4.7); ABSOLUTE MONOCYTES (AUTO) 0.3 10^3/uL (0.1-1.4); ABSOLUTE NEUT (AUTO) 4.5 10^3/uL (1.7-8.2); BASOPHILS % (AUTO) 0.5 % (0-2); EOSINOPHILS % (AUTO) 1.8 % (0-6); HEMATOCRIT 41.5 % (36.0-47.0); LYMPHOCYTES % (AUTO) 34.3 % (13-45); MEAN CORPUSCULAR HGB CONC 33.8 g/dL (32.0-36.0); MEAN CORPUSCULAR VOLUME 89 fl (80-97); MONOCYTES % (AUTO) 3.6 % (3-13); PLATELET COUNT 186 10^3/uL (150-450); RED BLOOD COUNT 4.67 10^6/uL (3.72-5.28); RED CELL DISTRIBUTION WIDTH 14.8 % (11.5-14.0); SEGMENTED NEUTROPHILS % (AUTO) 59.8 % (42-78); TOTAL CELLS COUNTED % (AUTO) 100 %; WHITE BLOOD COUNT 7.4 10^3/uL (4.0-10.5)
[2017-03-11 04:03] LABS: ALANINE AMINOTRANSFERASE 31 U/L (9-52); ALKALINE PHOSPHATASE 57 U/L (38-126); ANION GAP 8 (5-19); ASPARTATE AMINO TRANSFERASE 16 U/L (14-36); BILIRUBIN,DIRECT 0.2 mg/dL (0.0-0.4); BILIRUBIN,TOTAL 0.3 mg/dL (0.2-1.3); BLOOD UREA NITROGEN 9 mg/dL (7-20); CALCIUM 9.6 mg/dL (8.4-10.2); CARBON DIOXIDE 28 mmol/L (22-30); CHLORIDE 105 mmol/L (98-107); GLUCOSE 104 mg/dL (75-110); LIPASE 18.9 U/L (23-300); POTASSIUM 4.4 mmol/L (3.6-5.0); SODIUM 141.3 mmol/L (137-145); TOTAL PROTEIN 6.3 g/dL (6.3-8.2)
[2017-03-11 04:29] LABS: APPEARANCE,URINE SLIGHTLY-CLOUDY; BILIRUBIN,URINE NEGATIVE (NEGATIVE); COLOR,URINE STRAW; GLUCOSE, URINE NEGATIVE (NEGATIVE); KETONES,URINE NEGATIVE (NEGATIVE); LEUKOCYTE ESTERASE,URINE NEGATIVE (NEGATIVE); NITRITE,URINE NEGATIVE (NEGATIVE); PROTEIN,URINE NEGATIVE (NEGATIVE); URINE SPECIFIC GRAVITY 1.004; UROBILINOGEN,URINE NEGATIVE mg/dL (<2.0)
[2017-03-11] MEDS ORDERED: HYDROCODONE/ACETAMINOPHEN 5-325 MG (6 TAB/ER DISP) PO PRN (05:13)
[2017-03-11 05:27] VITALS: BP 149/86
--- NOTE | 2017-03-11 07:39 | EKG REPORT ---
SEVERITY:- BORDERLINE ECG - SINUS RHYTHM PROBABLE LEFT ATRIAL ABNORMALITY : Confirmed by: Azucena Singh MD 11-Mar-2017 07:37:55
== END 2017-03-11 05:27 | disposition home or self-care (01) ==
LOC: ER 23:38
DX: S81.851A Open bite, right lower leg, initial encounter (principal); R10.10 Upper abdominal pain, unspecified; R11.0 Nausea; M25.512 Pain in left shoulder; M79.604 Pain in right leg; W55.01XA Bitten by cat, initial encounter
CPT/HCPCS: 93005; 99284; 96374; 36415; 83690; 85025; 80053; 81001; 93010; S0119; J2270